=== PATIENT | female | born 1985 | race Caucasian/White ===

== ENCOUNTER 2017-12-17 16:09 | Emergency (ER) | payer OTHER ==
[~2017-12-17] VITALS: Ht 166.4 cm; Wt 68.0 kg
[~2017-12-17 16:09] MED LIST: IBU-6600 MG PO; IBUPROFEN800 M1 PO; ORTHO TRI-CYCL1 EAC1 PO; PERCOCET 5-3251 EACH PO; VALIUM2 MG PO; VICODIN5-300 PO; ZOFRAN ODT4 M1 PO
[2017-12-17 16:13] VITALS: BP 149/98
--- NOTE | 2017-12-17 16:53 | RADIOLOGY REPORT ---
EXAMINATION: XR SHOULDER, RIGHT CLINICAL INFORMATION: Right shoulder injury. COMPARISON: None TECHNIQUE: Three views of the right shoulder. FINDINGS: The bones and soft tissues are normal. No fracture. Glenohumeral and acromioclavicular alignment is anatomic with normal joint space. No abnormal soft tissue calcifications. IMPRESSION: Normal right shoulder.
[2017-12-17] MEDS ORDERED: MEDROL4 M2 PO (17:16)
[2017-12-17] MEDS ORDERED: IBUPROFEN800 M1 PO (17:16)
--- NOTE | 2017-12-17 17:16 | ED UPPER/LOWER EXTREMITY COMPL ---
History of Present Illness General Chief Complaint: Upper Extremity Injury Stated Complaint: SENT BY FOR INJURY TO RT ARM Source: patient Exam Limitations: no limitations Vital Signs & Intake/Output Vital Signs & Intake/Output Vital Signs Date Time Temp Pulse Resp B/P B/P Pulse O2 O2 Flow FiO2 Mean Ox Delivery Rate 12/17 1737 97 12/17 1613 97.8 112 18 149/98 99 Room Air Room Air Allergies Coded Allergies: aripiprazole (Intermediate, HIVES, HICCUPS 01/12/16) risperidone (Intermediate, HIVES 01/12/16) Reconcile Medications Ibuprofen 800 MG TABLET 1 TAB PO TID PRN PAIN Ibuprofen 800 MG TABLET 1 TAB PO TID PAIN Ibuprofen 800 MG TABLET 1 TAB PO TID PRN PAIN Methylprednisolone. (Medrol) 4 MG TAB.DS.PK 1 DP PO AD SHOULDER PAIN 6 on day 1 then reduce by one tablet daily until gone Norgestimate-Ethinyl Estradiol (Ortho Tri-Cyclen Lo Tablet) 1 EACH TABLET 1 TAB PO DAILY ENDOMETRIOSIS (Reported) Ondansetron (Zofran Odt) 4 MG TAB.RAPDIS 1 TAB PO Q6 PRN NAUSEA Oxycodone HCl/Acetaminophen (Percocet 5-325 MG Tablet) 1 EACH TABLET 1 TAB PO Q4-6 PRN BREAKTHROUGH PAIN Triage Note: PT TO ED WITH C/O RIGHT SHOULDER PAIN, HAS BEEN GOING TO PHYSICAL THERAPY FOR 1/5 MONTHS, NO BETTER, NOW NUMBNESS TO R THUMB AND INDEX FINGER. Triage Nurses Notes Reviewed? yes Onset: Abrupt Duration: week(s):, constant Timing: recent history Severity: moderate, severe Pain/Injury Location: Right: Shoulder. : No Patient currently breastfeeds: No HPI: 32-year-old female comes into the emergency room with complaints of right shoulder pain. Patient reports that she had an injury at work a few. She saw her primary care doctor. She went to a walk-in center twice. She's been undergoing physical therapy. Today while she was at work she was stretching out her shoulder felt a pop and never increased pain since then and was told to come to the hospital. Denies any other source of symptoms. She reports some tingling and numbness in her fingers. (Jd Faye) Past History Travel History Traveled to [place] past 21 day No Medical History Any Pertinent Medical History? see below for history Neurological: vertigo EENT: allergies Cardiovascular: NONE Respiratory: NONE Gastrointestinal: NONE Hepatic: NONE Renal: nephrolithiasis, KIDNEY FAILURE DURING PRE HELP SYNDROME,UTI'S KIDNEY STONES Musculoskeletal: NONE Psychiatric: anxiety, bipolar disease, depression, insomnia Endocrine: NONE Blood Disorders: NONE Cancer(s): NONE Surgical History Surgical History: UTERINE POLYPECTOMY december 03 BY dR. Thayer Psychosocial History What is your primary language Serbian Tobacco Use: Current Daily Use Daily Tobacco Use Amount/Type: => 5 Cigarettes daily ETOH Use: denies use Illicit Drug Use: denies illicit drug use Family History Hx Contributory? No (Jd Faye) Review of Systems Review of Systems Constitutional: Reports: no symptoms. EENTM: Reports: no symptoms. Respiratory: Reports: no symptoms. Cardiovascular: Reports: no symptoms. Gastrointestinal/Abdominal: Reports: no symptoms. Genitourinary: Reports: no symptoms. Musculoskeletal: Reports: see HPI. Skin: Reports: no symptoms. Neurological/Psychological: Reports: no symptoms. Hematologic/Endocrine: Reports: no symptoms. Immunological: Reports: no symptoms. All Other Systems: Reviewed and Negative (Jd Faye) Physical Exam Physical Exam General Appearance: well developed/nourished, mild distress Head: atraumatic Eyes: Bilateral: normal appearance. Ears, Nose, Throat: normal ENT inspection, hearing grossly normal Neck: normal inspection Cardiovascular/Respiratory: no respiratory distress Back: normal inspection Shoulder Right: soft tissue tenderness, limited range of motion, tenderness over ac joint, pain with abduction, Neurologic/Tendon: normal sensation, normal motor functions, normal tendon functions, responds to pain, no evidence tendon injury, no pulse deficit Skin: intact, normal color, warm/dry (Jd Faye) Progress Differential Diagnosis: contusion, dislocation, fracture, sprain, tendon injury, impingement syndrome, rotator cuff tendinitis, Plan of Care: Orders Procedure Date/time Status Durable Medical Equipment 12/17 1722 Active Diagnostic Imaging: Viewed by Me: Radiology Read. Discussed w/RAD: Radiology Read. Radiology Impression: PATIENT: DARIUSZ GOMEZ PRESENT AGE: 32 PATIENT ACCOUNT NO: [id number] : 86 LOCATION: [facility] ORDERING PHYSICIAN: Martha PATEL SERVICE DATE: 12/17/17 EXAM TYPE: RAD - XRY-SHOULDER COMPLETE-RIGHT EXAMINATION: XR SHOULDER, RIGHT CLINICAL INFORMATION : Right shoulder injury. COMPARISON: None TECHNIQUE: Three views of the right shoulder. FINDINGS: The bones and soft tissues are normal. No fracture. Glenohumeral and acromioclavicular alignment is anatomic with normal joint space. No abnormal soft tissue calcifications. IMPRESSION: Normal right shoulder. DICTATED BY: Lalo Mireles MD DATE/TIME DICTATED:12/17/171648 FIRST LINE PRODUCTION SUPERVISOR:NAHEED DATE/TIME TRANSCRIBED:12/17/171648 CONFIDENTIAL, DO NOT COPY WITHOUT APPROPRIATE AUTHORIZATION. <Electronically signed in Other Vendor System> SIGNED BY: Lalo Mireles MD 12/17/171652 (Jd Faye) Departure Departure Disposition: HOME OR SELF CARE Condition: Stable Clinical Impression Primary Impression: Impingement syndrome of right shoulder Referrals: Bebe ROMERO,Srinivasan Ocampo MD,Fede Jimenez (PCP/Family) Additional Instructions: Taking ibuprofen and Medrol Dosepak as prescribed. Follow-up with primary care doctor. Follow-up with orthopedic doctor. Return if any other concerns worsening symptoms. Please go over all results of today's visit with your primary care doctor. Contact your primary care doctor to let them know you were here in the emergency room. There may be nonspecific findings which may not be related to your visit today here in the emergency room but may require further evaluation and chronic monitoring by your primary care doctor. If you had a laceration today the chance of foreign body always remains. You should follow-up with your primary care doctor for recheck in 3-5 days for a wound check. If you had an x-ray done there is a chance that a fracture could have been missed on initial read and you should follow-up with your primary care doctor for repeat x-rays if symptoms persist. If your blood pressure was elevated here in the emergency room please have rechecked by [facility] primary care doctor within the next 48. If you were prescribed a narcotic here in the emergency room or any type of controlled substances you're not allowed to drive while taking this medication or operate any type of heavy machinery. Narcotics can make you feel lightheaded dizziness nausea and can cause constipation. You may need to diamond picker a stool softener. Thank you for choosing [facility] emergency room. Please return to the emergency room immediately if you have any other concerns worsening of symptoms. Departure Forms: Customer Survey General Discharge Information Prescriptions: Current Visit Scripts Ibuprofen 1 TAB PO TID #20 TAB Methylprednisolone. (Medrol) 1 DP PO AD #1 DP 6 on day 1 then reduce by one tablet daily until gone (Jd Faye) PA/FINANCIAL ADMINISTRATIVE ASSISTANT Co-Sign Statement Statement: ED Attending supervision documentation- [] I saw and evaluated the patient. I have also reviewed all the pertinent lab results and diagnostic results. I agree with the findings and the plan of care as documented in the PA's/FINANCIAL ADMINISTRATIVE ASSISTANT's documentation. [X] I have reviewed the ED Record and agree with the PA's/FINANCIAL ADMINISTRATIVE ASSISTANT's documentation. [] Additions or exceptions (if any) to the PAs/FINANCIAL ADMINISTRATIVE ASSISTANT's note and plan are summarized below: [] (Alexa ROMERO,Harvinder Ansari) Procedures Splinting Location: right shoulder Manual Alignment Performed: No Pre-Made Type: shoulder immobilizer Splint Applied By: splint applied by me Pre-Proc Neuro Vasc Exam: normal Post-Proc Neuro Vasc Exam: normal (Jd Faye)
== END 2017-12-17 17:37 ==
LOC: ERH 16:09
DX: M25.511 Pain in right shoulder (principal)
CPT/HCPCS: 73030-RT

== ENCOUNTER 2018-03-16 03:35 | Observation (INO) | payer OTHER ==
--- NOTE | 2018-03-15 19:08 | History & Physical Pre-Op ---
General Information and HPI History of Present Illness: This patient is a 32-year-old 3 para 3 with chronic menorrhagia who desires endometrial ablation. Allergies/Medications Allergies: Coded Allergies: aripiprazole (Intermediate, HIVES, HICCUPS 01/12/16) risperidone (Intermediate, HIVES 01/12/16) Home Med list Ibuprofen 800 MG TABLET 1 TAB PO TID PRN PAIN Ibuprofen 800 MG TABLET 1 TAB PO TID PAIN Ibuprofen 800 MG TABLET 1 TAB PO TID PRN PAIN Methylprednisolone. (Medrol) 4 MG TAB.DS.PK 1 DP PO AD SHOULDER PAIN 6 on day 1 then reduce by one tablet daily until gone Norgestimate-Ethinyl Estradiol (Ortho Tri-Cyclen Lo Tablet) 1 EACH TABLET 1 TAB PO DAILY ENDOMETRIOSIS (Reported) Ondansetron (Zofran Odt) 4 MG TAB.RAPDIS 1 TAB PO Q6 PRN NAUSEA Oxycodone HCl/Acetaminophen (Percocet 5-325 MG Tablet) 1 EACH TABLET 1 TAB PO Q4-6 PRN BREAKTHROUGH PAIN Past History Medical History Neurological: vertigo EENT: allergies Cardiovascular: NONE Respiratory: NONE Gastrointestinal: NONE Hepatic: NONE Renal: nephrolithiasis, KIDNEY FAILURE DURING PRE HELP SYNDROME,UTI'S KIDNEY STONES Musculoskeletal: NONE Psychiatric: anxiety, bipolar disease, depression, insomnia Endocrine: NONE Blood Disorders: NONE Cancer(s): NONE Surgical History Pertinent Surgical History: UTERINE POLYPECTOMY december 03 BY dR. Thayer Review of Systems Review of Systems Constitutional: Reports: no symptoms. EENTM: Reports: no symptoms. Cardiovascular: Reports: no symptoms. Respiratory: Reports: no symptoms. GI: Reports: no symptoms. Genitourinary: Reports: no symptoms. Musculoskeletal: Reports: no symptoms. Skin: Reports: no symptoms. Neurological/Psychological: Reports: no symptoms. Hematologic/Endocrine: Reports: no symptoms. Immunologic/Allergic: Reports: no symptoms. All Other Systems: Reviewed and Negative Exam & Diagnostic Data Last 24 Hrs of Vital Signs/I&O Intake & Output 03/15 1600 03/15 0800 03/15 0000 Intake Total Output Total Balance Patient 149 lb Weight Physical Exam: HEENT: Normocephalic atraumatic Chest: Clear to auscultation bilaterally Cardiovascular: Normal S1-S2 Abdomen: Soft nontender nondistended Pelvic: Deferred to the OR Extremities: No clubbing cyanosis or edema Neurologic, nonfocal Assessment/Plan Assessment/Plan: Menorrhagia Plan D&C hysteroscopy NovaSure ablation As Ranked By This Provider Problem List: 1. Menorrhagia
[~2018-03-16] VITALS: Ht 162.6 cm; Wt 67.6 kg
[~2018-03-16 03:35] MED LIST changes: +MEDROL4 M2 PO
[2018-03-16 19:00] VITALS: BP 108/70
[2018-03-16 21:00] VITALS: BP 100/60
[2018-03-17 06:59] VITALS: BP 86/50
[2018-03-17 07:04] VITALS: BP 96/58
[2018-03-17 07:48] LABS: ABSOLUTE BASOPHIL COUNT 0 /CUMM (0.0-0.2); ABSOLUTE EOSINOPHIL COUNT 0 /CUMM (0.0-0.7); ABSOLUTE GRANULOCYTE CT 6.3 /CUMM (1.4-6.5); ABSOLUTE LYMPH COUNT 0.9 /CUMM (1.2-3.4); ABSOLUTE MONOCYTE COUNT 0 /CUMM (0.10-0.60); BASOPHIL % 0.1 % (0.0-2.0); EOSINOPHIL % 0 % (0-5); HEMATOCRIT 33.8 % (37-47); MEAN CORPUSCULAR HGB 31.7 PG (27.0-31.0); MEAN CORPUSCULAR HGB CONC 33.9 G/DL (33.0-37.0); MEAN CORPUSCULAR VOLUME 93.4 FL (81.0-99.0); MEAN PLATELET VOLUME 9.9 FL (7.4-10.4); PLATELET COUNT 201 /CUMM (130-400); RBC DISTRIBUTION WIDTH 12.9 % (11.5-14.5); RED BLOOD CELL CT 3.62 /CUMM (4.20-5.40); WHITE BLOOD CELL COUNT 7.2 /CUMM (4.8-10.8)
[2018-03-17 08:12] LABS: GRANULOCYTE % 87.6 % (42.2-75.2)
--- NOTE | 2018-03-17 09:42 | Operative Report ---
Operative/Inv Procedure Report Surgery Date: 03/16/18 Name of Procedure: D&C, hysteroscopy, NovaSure ablation Pre-Operative Diagnosis: Menorrhagia Post-Operative Diagnosis: Same Estimated Blood Loss: less than 50ml Surgeon/Vascular Technologist: Moshe Leyva MD Anesthesia: laryngeal mask airway Operative/Procedure Note Note: The patient was taken to the operating room placed on the OR table in the dorsal supine position. She was given adequate anesthesia and intubated with an LMA. She was repositioned in modified dorsal lithotomy prepped and draped in usual sterile fashion. Weighted speculum was inserted into the vagina with the help of a Sheldon retractor single-tooth tenaculum was attached to the anterior lip of the cervix. The cervix was then injected with 1% lidocaine with epinephrine to have cc in each quadrant. An endocervical curettage was performed revealing a small amount tissue area and the uterus was then sounded and measured to 8 cm. The cervix was serially dilated to accommodate the hysteroscope hysteroscope was placed into the uterus and the saline infusion was activated. Shaggy endometrium was noted but there were no polyps or fibroids noted. The hysteroscope was removed and the cervix was further dilated. Sharp curettage followed revealing a moderate amount of tissue. At this point the NovaSure apparatus was primed and placed into the uterine cavity and opened. It was sealed and the cavity assessment passed. Then the NovaSure ablation begun at a wattage of 124 for approximately 90 seconds at the end of the procedure the instrument was removed intact hemostasis was good the vaginal instruments were removed patient was then awakened and sent to recovery in good condition. All needle, sponge, and inspected counts were correct at the end the procedure 2.
[2018-03-17 10:55] LABS: ABSOLUTE BASOPHIL COUNT 0 /CUMM (0.0-0.2); ABSOLUTE EOSINOPHIL COUNT 0 /CUMM (0.0-0.7); ABSOLUTE GRANULOCYTE CT 4.5 /CUMM (1.4-6.5); ABSOLUTE LYMPH COUNT 1.8 /CUMM (1.2-3.4); ABSOLUTE MONOCYTE COUNT 0.5 /CUMM (0.10-0.60); BASOPHIL % 0.2 % (0.0-2.0); EOSINOPHIL % 0.2 % (0-5); HEMATOCRIT 30.2 % (37-47); MEAN CORPUSCULAR HGB 31.7 PG (27.0-31.0); MEAN CORPUSCULAR HGB CONC 34.2 G/DL (33.0-37.0); MEAN CORPUSCULAR VOLUME 92.6 FL (81.0-99.0); MEAN PLATELET VOLUME 9.8 FL (7.4-10.4); PLATELET COUNT 183 /CUMM (130-400); RBC DISTRIBUTION WIDTH 12.7 % (11.5-14.5); RED BLOOD CELL CT 3.26 /CUMM (4.20-5.40); WHITE BLOOD CELL COUNT 6.9 /CUMM (4.8-10.8)
[2018-03-22] MEDS ORDERED: ESGIC CAPSULE1 EACH PO (14:06)
== END 2018-03-17 13:02 ==
LOC: STS 03:35 → PACUH 17:38 → ENRESERV 18:22 → 2NA 18:50
PROVIDERS: Obstetrics & Gynecology
DX: N92.0 Excessive and frequent menstruation with regular cycle (principal); N72 Inflammatory disease of cervix uteri; Z98.51 Tubal ligation status; Z87.442 Personal history of urinary calculi
CPT/HCPCS: 6030; 36592; 88305; 96372; 96374; 96375; G0378; J2405; J3250